=== PATIENT | male | born 1970 | race Two or more races ===

== ENCOUNTER 2022-09-01 13:21 | Emergency (ER) | payer OTHER ==
[~2022-09-01] VITALS: Ht 167.6 cm; Wt 88.6 kg
[2022-09-01 13:30] VITALS: BP 128/90
== END 2022-09-01 20:31 | disposition left against medical advice (07) ==
LOC: EDSEX 13:21 → ER 13:21
DX: S09.90XA Unspecified injury of head, initial encounter (principal); W10.8XXA Fall (on) (from) other stairs and steps, initial encounter; Y93.89 Activity, other specified; Y92.89 Other specified places as the place of occurrence of the external cause; Y99.8 Other external cause status
CPT/HCPCS: 70450; 72070; 72125